=== PATIENT | male | born 1955 | race Caucasian/White ===

== ENCOUNTER 2016-10-28 08:55 | Inpatient (IN) | payer OTHER ==
[2016-10-28] MEDS ORDERED: ALPRAZolam 0.25 MG TAB ONE (11:34)
[2016-10-28 11:49] VITALS: RESP 16; TEMP 98.3
[2016-10-28] MEDS ORDERED: ALPRAZolam 0.5 MG TAB PO PRN (12:18)
[2016-10-28] MEDS ORDERED: NITROGLYCERIN SL TABS 0.4 MG TAB SUBLINGUAL PRN (12:18)
[2016-10-28] MEDS ORDERED: ATORVASTATIN 80 MG TAB PO STA (12:18)
[2016-10-28] MEDS ORDERED: ALPRAZolam 0.25 MG TAB PO PRN (12:18)
[2016-10-28] MEDS ORDERED: ASPIRIN 325 MG TAB PO STA (12:18)
[2016-10-28] MEDS ORDERED: SODIUM CHLORIDE 0.9% 1,000 ML in EMPTY BAG 1 BAG IV ONE (12:18)
[2016-10-28] MEDS ORDERED: diphenhydrAMINE 50 MG/ML 1 ML VIAL IVP ONE (12:35)
[2016-10-28] MEDS ORDERED: MIDAZOLAM 2 MG/2 ML VIAL IV ONE (12:37)
[2016-10-28] MEDS ORDERED: fentaNYL (PF) 50 MCG/ML 2 ML AMP IV ONE ×2 (12:40)
[2016-10-28] MEDS ORDERED: LIDOCAINE 2% INJ 20 MG/ML SQ ONE (12:40)
[2016-10-28] MEDS ORDERED: RX INFO: IV CONTRAST WAS GIVEN 1 EACH MISC MISCELLANE PRN (13:02)
[2016-10-28] MEDS ORDERED: IOHEXOL 350 MG/ML 125ML BOTTLE INJ ONE (13:06)
[2016-10-28] MEDS ORDERED: PANTOPRAZOLE 40 MG TABLET PO STA (13:07)
[2016-10-28] MEDS ORDERED: SODIUM CHLORIDE 0.9% 1,000 ML IV SCH (13:15)
[2016-10-28 16:33] VITALS: PULSE 72
[2016-10-28 17:19] VITALS: BP 136/82
--- NOTE | 2016-10-28 22:11 | P.HPIM ---
History of Present Illness H&P Date: 10/28/16 Chief Complaint: Chest pain His would serve both an H&P and discharge summary This is a 61-year-old pleasant gentleman with no current PCP, no prior history except for skin cancer related to sun exposure, and previous electrocution 2 years ago. He is a nonsmoker with no alcohol use, hasn't seen a doctor for the past several years presented to [facility] secondary chest discomfort. 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 Chest pain radiated to the left arm, he was seen in emergency room was given nitroglycerin and was relieved with the symptoms. He had an EKG performed at [facility] that shows a right bundle branch block and nonspecific anterior or T wave changes, creatinine at that time was 1.01, he was transferred from [facility], to [facility] for cardiac cath as recommended by Dr. Montoya mass spec at the [facility] at his cardiac troponins in the prior hospital was negative Other symptoms include shortness of breath when waking up in the morning, on related to her current household bedroom, not when he is on his trailer, he also has a pet dog in the bedroom. Patient was not diagnosed to have asthma, he has some cough productive of yellowish sputum, and on occasion with several episodes of coughing, he would have some blood tinge saliva, bilious vomitus and occasional coffee-ground, occasional black tarry stools, this lasted for less than 3 days, his last episode was 2 weeks prior to admission did not recur since then normal bowel movements, no further melena Review of Systems Constitutional: Reports as per HPI, Denies anorexia, Denies chills, Denies chronic headaches, Denies chronic pain, Denies daytime sleepiness, Denies fatigue, Denies fever, Denies lethargy, Denies malaise, Denies night sweats, Denies poor appetite, Denies sweats, Denies weakness, Denies weight gain, Denies weight loss Ears, nose, mouth and throat: Reports as per HPI, Denies ant. neck pain, Denies bleeding gums, Denies dental pain, Denies dysphagia, Denies epistaxis, Denies headache, Denies hoarseness, Denies mouth pain, Denies nasal congestion, Denies nasal discharge, Denies neck fullness/pressure, Denies neck lump, Denies nose pain, Denies odynophagia, Denies post-nasal drip, Denies sinus pain, Denies sinus pressure, Denies swelling in mouth, Denies swelling in throat, Denies sore throat, Denies vertigo, Denies voice changes Cardiovascular: Reports as per HPI, Reports chest pain, Denies claudication, Denies decreased exercise tolerance, Denies dyspnea on exertion, Denies edema, Denies high blood pressure, Denies irregular heart beat, Denies leg edema, Denies lightheadedness, Denies orthopnea, Denies palpitations, Denies paroxysmal nocturnal dyspnea, Denies phlebitis, Denies rapid heart beat, Denies syncope Respiratory: Reports as per HPI, Reports cough with sputum Gastrointestinal: Reports as per HPI, Denies abdominal pain, Denies belching, Denies bloating, Denies BRBPR, Denies change in bowel habits, Denies constipation, Denies diarrhea, Denies dyspepsia, Denies early satiety, Denies excessive gas, Denies heartburn, Denies hematochezia, Denies indigestion, Denies jaundice, Denies lactose intolerance, Denies loss of appetite, Denies melena, Denies nausea, Denies vomiting Genitourinary: Reports as per HPI, Denies decreased libido, Denies difficulties fathering child, Denies discharge, Denies dysuria, Denies erectile dysfunction, Denies flank pain, Denies genital pain, Denies genital sores, Denies hematuria, Denies impotence, Denies incontinence, Denies kidney stones, Denies nocturia, Denies polyuria, Denies testicular lump, Denies testicular pain, Denies urinary frequency, Denies urinary hesitancy, Denies urinary retention Musculoskeletal: Reports as per HPI, Denies arm numbness/tingling, Denies atrophy, Denies fractures, Denies frequent falls, Denies gait dysfunction, Denies hot joints, Denies leg numbness/tingling, Denies limitation of motion, Denies loss of height, Denies low back pain, Denies morning stiffness, Denies muscle cramps, Denies muscle weakness, Denies myalgias, Denies neck pain, Denies neck stiffness, Denies prior amputations, Denies redness of joints, Denies shooting arm pain, Denies shooting leg pain Integumentary: Reports as per HPI, Denies acne, Denies boils, Denies brittle nails, Denies change in hair/nails, Denies color changes, Denies darkening of skin, Denies depigmentation, Denies dryness, Denies foot/leg ulcers, Denies growths, Denies hirsutism, Denies lesions, Denies onychomycosis, Denies pruritus , Denies rash, Denies sores, Denies striae, Denies unusual bruising, Denies wounds Neurological: Reports as per HPI, Denies aphasia, Denies ataxia, Denies balance difficulties, Denies burning pain, Denies change in mentation, Denies change in smell/taste, Denies change in speech, Denies confusion, Denies convulsions, Denies double vision, Denies gait dysfunction, Denies head injury, Denies headaches, Denies hearing difficulties, Denies lack of coordination, Denies loss of vision, Denies memory loss, Denies migraines, Denies motor disturbance, Denies numbness, Denies paralysis, Denies paresthesias, Denies seizures, Denies sensory deficit, Denies spasticity, Denies syncope, Denies tic, Denies tingling , Denies transient paralysis, Denies tremors, Denies vertigo, Denies weakness, Denies visual changes Psychiatric: Reports as per HPI, Denies anhedonia, Denies anxiety, Denies anxiety attacks, Denies change in appetite, Denies change in libido, Denies change in sleep habits, Denies confusion, Denies depression, Denies difficulty concentrating, Denies disorientation, Denies hallucinations, Denies hopelessness , Denies hypersomnia, Denies insomnia, Denies irritability, Denies memory loss, Denies mood swings, Denies paranoia, Denies sadness/tearfulness, Denies sleep disturbances, Denies suicidal ideation Endocrine: Reports as per HPI, Denies cold intolerance, Denies deepening of the voice, Denies excessive sweating, Denies excessive thirst, Denies fatigue, Denies flushing, Denies heat intolerance, Denies high blood sugars, Denies increase in ring/shoe/hat size, Denies low blood sugars, Denies nocturia, Denies palpitations, Denies polydipsia, Denies polyphagia, Denies polyuria, Denies proptosis, Denies recent glucocorticoid use, Denies thyroid mass, Denies weight change Hematologic/Lymphatic: Reports as per HPI, Denies easy bleeding, Denies easy bruising, Denies lymphadenopathy, Denies lymphedema, Denies thrombophilia Allergic/Immunologic: Reports as per HPI, Denies allergic rhinitis, Denies anaphylaxis, Denies angioedema, Denies gluten intolerance, Denies persistent infections, Denies seasonal allergies, Denies urticaria, Denies wheezing Past Medical History Past Surgical History: No Surgical Hx Reported Past Anesthesia/Blood Transfusion Reactions: No Reported Reaction Past Psychological History: No Psychological Hx Reported Smoking Status: Never smoker Past Drug Use History: None Reported Additional History: Electrocution 2 years ago Medications and Allergies Allergies Allergy/AdvReac Type Severity Reaction Status Date / Time Penicillins Allergy Rash/Hives Verified 10/28/16 14:45 Physical Exam Vitals: Vital Signs Temp Pulse Resp BP BP Pulse Ox 10/28/16 17:15 72 16 136/82 10/28/16 16:31 72 16 95 10/28/16 16:12 86 16 135/69 97 10/28/16 15:24 86 16 134/75 96 10/28/16 14:17 82 16 138/76 95 10/28/16 13:47 78 16 129/78 96 10/28/16 13:32 78 16 128/74 96 10/28/16 13:17 78 16 117/70 96 10/28/16 13:02 80 16 121/80 96 10/28/16 11:48 98.3 F 95 16 143/78 137/67 95 Intake and Output 10/28/16 10/28/16 10/28/16 06:59 14:59 22:59 Intake Total 150 540 Balance 150 540 Intake: IV 150 300 Sodium Chloride 0.9% 1, 0 300 000 ml @ 75 mls/hr IV . [id number] [facility] Rx#:[id number] Oral 240 Other: Weight 107.501 kg Patient Weight 10/29/16 06:59 Weight 107.501 kg - Constitutional General appearance: cooperative, no acute distress, obese - EENT Eyes: anicteric sclerae, EOMI, PERRLA, dentition normal, normal appearance ENT: hearing grossly normal, NA/AT, normal oropharynx - Neck Neck: no lymphadenopathy, normal ROM, no other, no rigidity, no stridor, no thyromegaly Thyroid: bilateral: normal size - Respiratory Respiratory: bilateral: CTA, negative: diminished, dullness, rales, rhonchi, wheezing, prolonged expiration, prolonged inspiration - Cardiovascular Rhythm: regular Heart sounds: normal: S1, S2 Abnormal Heart Sounds: no systolic murmur, no diastolic murmur, no rub, no S3 Gallop, no S4 Gallop, no click, no other - Gastrointestinal General gastrointestinal: normal bowel sounds, soft - Integumentary Integumentary: normal, normal turgor - Neurologic Neurologic: CNII-XII intact - Musculoskeletal Musculoskeletal: gait normal, strength equal bilaterally - Psychiatric Psychiatric: A&O x's 3, appropriate affect, intact judgment & insight Assessment and Plan Plan: . Chest pain with abnormal EKG, cannot rule out acute coronary syndrome and unstable angina, patient has been evaluated initially at [facility] with negative troponins, nonspecific EKG changes were noted, patient underwent a heart catheterization normal coronaries preliminary report, no formal report available for review, for 20 mg was given on discharge, fasting lipid panel would need to be investigated 2. Reactive airway symptoms related to his current bedroom, patient has been advised regarding exposures to environmental ALLERGIES including mold , patient was given a prescription for albuterol and Asmanex or Flovent 110, modifications will be made to use hypoallergenic bedcovers and to replace his pillow, no pets in the bedroom, 3. Gastritis with an episode of hematemesis related to coughing, most likely from retching, patient is not an alcoholic, no recent NSAID use, patient most likely has mild right gastritis resolution of hematemesis, elective outpatient work up should symptoms progress, but tonics 40 mg daily for minimum of 14 days was advised, and was requested to be seen earlier for recurrence off hematemesis 4. Tracheobronchitis was started on Bactrim DS twice a day, 7 days 5. EKG showing right bundle branch block, nonspecific ST-T wave changes, 6 BMI of 34 changes with weight loss and low-fat diet was recommended 7 Baseline creatinine of 1.01, this needs to be monitored, nephrotoxins will be avoided, 8 discharge planning stable on discharge with per preliminary cardiac cath report normal coronaries, outpatient follow-up with myself in [address] Montoya in 2-3 weeks Discharge Medication List Albuterol Sulfate [Proventil Hfa] 2 puff INHALATION Q6HR PRN #1 inhaler [Rx] Atorvastatin [Lipitor] 20 mg PO HS #30 tablet 10/28/16 [Rx] Fluticasone Propionate [Flovent Hfa 110mcg] 2 puff INHALATION BID #1 inhaler 08/15 [Rx] Omeprazole [PriLOSEC] 40 mg PO AC-BRKFST #28 cap 10/28/16 [Rx] Sulfamethox-Tmp 800-160Mg [Bactrim DS 800-160 mg] 1 tab PO Q12HR #14 tab [Rx]
--- NOTE | 2016-10-28 23:55 | CC ---
DATE OF SERVICE: Mr. Pool is a 61-year-old gentleman who was admitted to the hospital with recurrent episodes of substernal resting chest discomfort suggestive of unstable angina syndrome. Patient's EKGs and cardiac enzymes were normal. Because of the recurrent resting pain, patient was advised cardiac catheterization for definitive diagnosis. PROCEDURE: The right groin was prepped and draped in the usual manner and the skin was infiltrated with 2% Xylocaine. The right femoral artery was entered using Seldinger technique. A #6 Scottish sheath was placed in. Selective coronary angiography was then performed in multiple projections and the left ventricular pressures were obtained. Patient tolerated the procedure well. HEMODYNAMICS: Left ventricular end-diastolic pressure was 16 mmHg prior to angiography. No gradient was noted across the aortic valve. SELECTIVE CORONARY ANGIOGRAPHY: Left main coronary artery is normal and patent. LAD is a good-caliber blood vessel and gives rise to a good-sized diagonal branch. LAD and its branches are normal. Circumflex coronary artery is a good-caliber blood vessel and gives rise to a good-sized obtuse marginal branch. Circumflex coronary artery and its branches are normal. Right coronary artery is dominant in distribution and gives rise to the posterior descending artery. Right coronary artery and its branches are normal. FINAL IMPRESSION: This study reveals normal coronary arteries. Left ventricular end-diastolic pressure is 16 mmHg. RECOMMENDATIONS: Continue medical treatment and risk factor modification.
[2016-10-29] MEDS ORDERED: PANTOPRAZOLE 40 MG TABLET PO SCH (07:30)
== END 2016-10-28 17:30 | disposition home or self-care (01) | DRG 286 ==
LOC: 6SEL 12:01
PROVIDERS: ADMIT Family Medicine; ATTEND Family Medicine
PROC: B2111ZZ Fluoroscopy of Multiple Coronary Arteries using Low Osmolar Contrast (ICD-10-PCS; 2016-10-28)
PROC: 4A023N7 Measurement of Cardiac Sampling and Pressure, Left Heart, Percutaneous Approach (ICD-10-PCS; principal; 2016-10-28 12:21)
DX: R07.9 Chest pain, unspecified (principal); K29.71 Gastritis, unspecified, with bleeding; I45.10 Unspecified right bundle-branch block; J40 Bronchitis, not specified as acute or chronic; Z85.828 Personal history of other malignant neoplasm of skin; Z88.0 Allergy status to penicillin
CPT/HCPCS: 93458

== ENCOUNTER → 2017-09-07 | Outpatient (CLI) | payer BC ==
[~2017-09-07] MED LIST: AMINOPHYLLINE 500 MG/20 ML VIAL IV ONE; REGADENOSON 0.4 MG/5 ML SYRINGE IV ONE
--- NOTE | 2017-09-07 13:46 | NM ---
EXAMINATION TYPE: NM stress lexiscan cardiolite DATE OF EXAM: 09/07/2017 COMPARISON: NONE HISTORY: Chest pain TECHNIQUE: After the intravenous administration of 10.9 mCi Tc 99m Sestamibi - Cardiolite resting SP ECT images acquired 45 minutes post injection. The patient received 0.4mg Lexiscan, 25.1 mCi Tc 99m Sestamibi - Stress images obtained [address] injection FINDINGS: Review of stress and rest SPECT images demonstrates no distinct perfusion abnormality. Gated analysi s shows normal wall motion with an estimated left ventricular ejection fraction of 64 %. IMPRESSION: No scintigraphic evidence for reversible ischemia.
--- NOTE | 2017-09-08 13:29 | EST ---
- Stress Test Note Stress Test Results/Findings: Exam Performed: NM stress lexiscan cardiolite Exam Date: 09/07/17 Reason for Exam: Chest Pain Height: 5 ft 11 in Weight: 131.542 kg Protocol: Modesta Scan Stage: na Duration of Exercise: na- Resting Heart Rate: 69 Resting Blood Pressure: 150/73 Maximum Achieved Heart Rate: 91 Maximum Achieved Blood Pressure: 150/73 85% PMHR: na 100% PMHR: na METS: na Technologist Comment: Stress Test Results/Findings: This 61-year-old male is being evaluated for symptoms of chest pain. Patient has history of previous cardiac intervention and also family history of ischemic heart disease. Baseline EKG showed sinus rhythm with evidence of right bundle-branch block pattern. Blood pressure at rest is 150/73 with pulse rate of 69. A standard dose of Lexiscan was infused EKGs taken during and after infusion did not reveal any changes from the baseline. Final impression: #1. Negative Lexiscan stress test #2. Report on the nuclear images to be given by the radiologist. BRIANNA
== END | disposition home or self-care (01) ==
LOC: RADNMMAIN 09:00
PROVIDERS: ATTEND Family Medicine
DX: I25.10 Atherosclerotic heart disease of native coronary artery without angina pectoris (principal)
CPT/HCPCS: 93017; 78452; A9500; J2785